=== PATIENT | male | born 1965 | race Caucasian/White ===

== ENCOUNTER 2020-03-12 15:54 | Emergency (ER) | payer SELFPAY ==
[~2020-03-12 15:54] MED LIST: EPINEPHrine 1 MG/10 ML Abboject SYRINGE ONE
== END 2020-03-12 16:04 | disposition expired ==
LOC: EDBD 15:54 → ERS 15:54
DX: I46.9 Cardiac arrest, cause unspecified (principal)
CPT/HCPCS: 31500; 92950; 96374; J0171